=== PATIENT | female | born 1980 | race African-American/Black ===

== ENCOUNTER 2017-05-25 06:14 | Day surgery (SDC) | payer BC ==
[2017-05-23 15:42] VITALS: BMI 37.4
[2017-05-25] MEDS ORDERED: MIDAZOLAM HCL 2 MG/2 ML SINGLE DOSE VIAL ONE (07:32)
[2017-05-25] MEDS ORDERED: PROPOFOL 20 ML ONE (07:32)
[2017-05-25] MEDS ORDERED: ROCURONIUM BROMIDE 50 MG/5 ML VIAL ONE (07:32)
[2017-05-25] MEDS ORDERED: ceFAZolin SODIUM 1 GM VIAL ONE (08:11)
[2017-05-25] MEDS ORDERED: ceFAZolin SODIUM 1 GM VIAL IVPB ONE (08:13)
[2017-05-25] MEDS ORDERED: DEXAMETHASONE SOD PHOSPHATE 4 MG/1 ML VIAL ONE (08:18)
[2017-05-25] MEDS ORDERED: KETOROLAC TROMETHAMINE 30 MG/1 ML VIAL ONE (08:18)
[2017-05-25] MEDS ORDERED: LIDOCAINE HCL/PF 2% SDV 5ML VIAL ONE (08:18)
[2017-05-25] MEDS ORDERED: GLYCOPYRROLATE 0.2 MG/1 ML VIAL ONE ×2 (08:18→08:45)
[2017-05-25] MEDS ORDERED: NEOSTIGMINE METHYLSULFATE 0.5 MG/ML - 10 ML MDV ONE (08:45)
[2017-05-25] MEDS ORDERED: oxyCODONE HCL 5 MG TABLET PO PRN (09:16)
[2017-05-25] MEDS ORDERED: PROMETHAZINE HCL 25 MG/1 ML VIAL IVPUSH PRN (09:16)
[2017-05-25] MEDS ORDERED: ONDANSETRON 4 MG/2 ML VIAL IVPUSH PRN (09:16)
[2017-05-25] MEDS ORDERED: LACTATED RINGERS SOLUTION 1,000 ML IV SCH (09:30)
[2017-05-25] MEDS ORDERED: ONDANSETRON 4 MG/2 ML VIAL ONE (09:56)
--- NOTE | 2017-05-25 10:13 | OP ---
Operative Note - Note: Operative Date: 05/25/17 Pre-Operative Diagnosis: Multiparity voluntary sterizilation. embedded IUD. Pelvic Pain Operation: Hyeroscopic removal of IUD. suction DC. Laparoscopic bilateral salpingectomy. hysteroscopic lyis of adhesions Findings: uterine synechiae embedded iud into muscle normal fallopian tubes and ovaries Post-Operative Diagnosis: Same as Pre-op Surgeon: Liane Castelan Lumber Stacker Operator: Shanna Pinto Anesthesia: General Estimated Blood Loss (mls): 5 Operative Report Dictated: Yes
--- NOTE | 2017-05-25 10:15 | HP ---
History & Physical Update - History History: No Change - Physical Physical: No Change - Assessment Assessment: No Change - Plan Plan: No Change
[2017-05-25] MEDS ORDERED: IBUPROFEN 800 MG/8 ML IJ IVPB PRN (10:18)
[2017-05-25] MEDS ORDERED: IBUPROFEN 600 MG TABLET (FP) PO PRN (10:18)
[2017-05-25 10:26] VITALS: TEMP 97.9
--- NOTE | 2017-05-25 11:01 | OP ---
DATE OF OPERATION: 05/25/2017 PREOPERATIVE DIAGNOSIS: Multiparity, voluntary sterilization, embedded intrauterine device, and pelvic pain. OPERATION: Hysteroscopic intrauterine device resection, suction dilatation and curettage, lysis of adhesions, and laparoscopic bilateral salpingectomy. POSTOPERATIVE DIAGNOSIS: Embedded intrauterine device, uterine synechiae, and normal tubes and ovaries. SURGEON: Chetan Carvajal MD CHOCOLATE FINISHER OPERATOR: Shanna Pinto MD ANESTHESIA: General. ANESTHESIOLOGIST: Mary Morales MD ESTIMATED BLOOD LOSS: 5 mL. PROCEDURE: Patient was taken to the operating room, placed in dorsal lithotomy position, prepped and draped in the usual sterile fashion. A Rossi catheter was inserted into the bladder after a time-out had been performed. A scalpel was then used to make an umbilical incision. Veress needle was inserted into the cavity without injury to the underlying viscera. Laparoscope and camera were attached. Two trocars were inserted on the left and the right sides in the lower abdomen under direct visualization. The LigaSure and grasper were then used to grasp the tube on the left. Coagulation and cutting of the fallopian tube was done. Tube was noted to be normal, and ovary was normal, uterus normal. Attention was then drawn to the other side, where the fallopian tube was grasped, and LigaSure was then used to remove the fallopian tube using coagulation and cutting technique. Both tubes were submitted to Pathology. Hemostasis was achieved. Some adhesion was noted on the upper abdomen of the omentum, and LigaSure was then used to coagulate and cut that omental adhesion. Surveillance of the abdomen was noted to be normal. All instruments were then removed. Incisions were then closed using 4-0 Biosyn after CO2 had been removed from the abdomen. Attention was then drawn to the vagina, where a speculum was placed. The anterior lip of the cervix was grasped with a single-tooth tenaculum. Hysteroscope was then inserted, and visualization revealed an embedded IUD into the uterine muscle. Hysteroscopic removal of IUD was done, and suction dilatation and curettage was done due to numerous synechiae seen in the endometrium, and suction dilatation and curettage was performed. Hemostasis was achieved. All instruments were then removed. Patient tolerated the procedure well. Estimated blood loss was 5 mL. CHETAN CARVAJAL M.D. [id number]
[2017-05-25] MEDS ORDERED: IBUPROFEN 600 MG TABLET (FP) PO ONE (13:36)
[2017-05-25 14:25] VITALS: BP 120/77; PULSE 79
--- NOTE | 2017-05-26 13:56 | PATH ---
Surgical Pathology Report Patient Name: JOSÉ LUIS RITCHIE [facility]. Rec. #: [id number] /Age/Gender: 1980 (Age: 37) / F Account: [id number] Location: [facility] SURGICAL Taken: 05/25/2017 Received: 05/25/2017 Reported: 05/26/2017 Physicians: Liane Castelan M.D. Specimen(s) Received A: IUD B: BILATERAL FALLOPIAN TUBES C: UTERINE CONTENTS Clinical History Embedded IUD Final Diagnosis A. IUD, REMOVAL: IUD (GROSS EXAM). B. BILATERAL FALLOPIAN TUBES, SALPINGECTOMY: TWO FIMBRIATED FALLOPIAN TUBES WITH COMPLETE CROSS SECTIONS. C. CONTENTS OF UTERUS: FRAGMENTS OF INACTIVE ENDOMETRIUM. FRAGMENTS OF BENIGN SMOOTH MUSCLE. SMALL FRAGMENTS OF BENIGN ENDOCERVICAL TISSUE AND BENIGN SQUAMOUS EPITHELIUM. Electronically Signed Prasad Plama M.D. Gross Description A. Received in formalin labeled "removed IUD" is a 3 cm in length T-shaped device, consistent with an intrauterine device. No soft tissue is present. No sections are submitted, gross only. B. Received in formalin labeled "bilateral fallopian tubes" are 2 undesignated, fimbriated fallopian tubes measuring 5.5 and 6.5 cm in length. The outer surfaces are mckeon-pink and smooth. Sectioning reveals unremarkable lumens. Marketing Sales Supervisor sections are submitted in 4 cassettes as follows: 1-shorter fallopian tube fimbria; 1-jfxkk-oaytqswz of shorter fallopian tube; 3-longer fallopian tube fimbria; 9-yliob-snsrrxef of longer fallopian tube. C. Received in formalin labeled "contents of uterus" received in formalin labeled "contents of uterus," is a 3.0 x 1.8 x 0.2 cm aggregate of mckeon red soft tissue fragments. The formalin is filtered and the specimen is entirely submitted in one cassette. 05/25/201705/25/2017
== END 2017-05-25 14:15 | disposition home or self-care (01) ==
LOC: JASU-SURG 06:14
PROVIDERS: ATTEND Obstetrics & Gynecology
PROC: 0UN98ZZ Release Uterus, Via Natural or Artificial Opening Endoscopic (ICD-10-PCS; 2017-05-25)
PROC: 0UDB8ZZ Extraction of Endometrium, Via Natural or Artificial Opening Endoscopic (ICD-10-PCS; 2017-05-25)
PROC: 0UPD8HZ Removal of Contraceptive Device from Uterus and Cervix, Via Natural or Artificial Opening Endoscopic (ICD-10-PCS; principal; 2017-05-25 07:30)
PROC: 0UB74ZZ Excision of Bilateral Fallopian Tubes, Percutaneous Endoscopic Approach (ICD-10-PCS; 2017-05-25 07:30)
DX: Z30.2 Encounter for sterilization (principal); T83.39XA Other mechanical complication of intrauterine contraceptive device, initial encounter; N85.6 Intrauterine synechiae
CPT/HCPCS: 84703; 88300-TC; 88302-TC; 88305-TC; 94760

== ENCOUNTER 2019-06-06 10:57 | Day surgery (SDC) | payer OTHER ==
[2019-06-04 16:36] VITALS: BMI 36.6
--- NOTE | 2019-06-06 08:02 | HP ---
History & Physical Update - History History: No Change - Physical Physical: No Change - Assessment Assessment: No Change - Plan Plan: No Change (No change in HP)
--- NOTE | 2019-06-06 10:07 | OP ---
Operative Note - Note: Operative Date: 06/06/19 Pre-Operative Diagnosis: Abnormal uterine bleeding. submucosal myoma. menorrhagia Operation: Hysteroscopic myomectomy. SUction DC Post-Operative Diagnosis: Same as Pre-op Surgeon: Liane Castelan Anesthesia: General Specimens Removed: submucoasl myoma. enometrial polyps Estimated Blood Loss (mls): 10
--- NOTE | 2019-06-06 10:31 | OP ---
DATE OF OPERATION: 06/06/2019 PREOPERATIVE DIAGNOSIS: Abnormal uterine bleeding, submucosal myoma, endometrial polyps. OPERATION: Hysteroscopic myomectomy, suction dilation and curettage. POSTOPERATIVE DIAGNOSIS: Large, anterior submucosal myoma, type 2 myoma, large amount of fibroid located in the muscle of the uterus. DESCRIPTION OF PROCEDURE: Patient was taken to the operating room. Placed in dorsal lithotomy position. Prepped and draped in the usual sterile fashion. Time-out was performed in accordance with hospital regulations. Speculum was placed in the vagina. Anterior lip of the cervix was grasped with a single-tooth tenaculum. Cervix was then dilated to accommodate the operative hysteroscope. Upon entry of the scope, endometrial polyps were seen as well as a large, anterior, submucosal type 2 myoma. Cautery and cutting of the polyps as well as the myoma was done. Shaving of the myoma as much as possible within the intramural muscle followed by suction dilation and curettage. After much times repeating this procedure, it was evident that myoma was a type 2 myoma with a lot of portion of the myoma located within the muscle. Procedure was then terminated, and contents were submitted to Pathology. All instruments were then removed. Patient tolerated procedure well. Estimated blood loss 10 mL. CHETAN CARVAJAL M.D. [id number]
[~2019-06-06 10:57] MED LIST: ACETAMINOPHEN 325 MG TABLET (FP) PO PRN; IBUPROFEN 400 MG TABLET (FP) PO PRN
[2019-06-06] MEDS ORDERED: oxyCODONE HCL 5 MG TABLET PO PRN (11:15)
[2019-06-06] MEDS ORDERED: LACTATED RINGERS SOLUTION 1,000 ML IV SCH (11:15)
[2019-06-06 12:00] VITALS: BP 118/73; PULSE 73; TEMP 97.8
--- NOTE | 2019-06-10 12:09 | PATH ---
Surgical Pathology Report Patient Name: JOSÉ LUIS RITCHIE [facility]. Rec. #: [id number] /Age/Gender: 1980 (Age: 39) / F Account: [id number] Location: [facility] SURGICAL Taken: 06/06/2019 Received: 06/06/2019 Reported: 06/10/2019 Physicians: Liane Castelan M.D. Specimen(s) Received A: ENDOMETRIAL CURETTINGS B: SUBMUCOSAL MYOMA Clinical History Uterine fibroids Final Diagnosis A. ENDOMETRIAL CURETTINGS: FRAGMENTS OF PROLIFERATIVE ENDOMETRIUM. SEPARATE FRAGMENTS OF SMOOTH MUSCLE BUNDLES. SEE COMMENT B. SUBMUCOSAL MYOMA, MYOMECTOMY: FRAGMENTS OF SMOOTH MUSCLE BUNDLES. SEE COMMENT. SEPARATE FRAGMENTS OF PROLIFERATIVE TYPE ENDOMETRIUM. Comment: The smooth muscle bundles are consistent with a submucosa leiomyoma. Electronically Signed Anni Ashley M.D. Gross Description B. Received in formalin, labeled "endometrial curettings" are multiple mckeon, irregular portions of soft tissue measuring 2.5 x 2.5 x 0.2 cm aggregate. The specimens are submitted in toto in one cassette. A. Received in formalin, labeled "submucosal myoma" are multiple dark brown portions of soft tissue measuring 2.5 X 2.5 x 0.3 cm in aggregate. The specimens are submitted in toto in one cassette. __ KWDrake/06/06/2019 wally/06/06/2019
== END 2019-06-06 12:01 | disposition home or self-care (01) ==
LOC: JASU-SURG 10:57
PROVIDERS: ATTEND Obstetrics & Gynecology
PROC: 0UB98ZZ Excision of Uterus, Via Natural or Artificial Opening Endoscopic (ICD-10-PCS; principal; 2019-06-06 08:00)
PROC: 0UDB8ZX Extraction of Endometrium, Via Natural or Artificial Opening Endoscopic, Diagnostic (ICD-10-PCS; 2019-06-06 08:00)
DX: N93.8 Other specified abnormal uterine and vaginal bleeding (principal); D25.0 Submucous leiomyoma of uterus
CPT/HCPCS: 88305-TC; 94760